=== PATIENT | female | born 1940 | race Caucasian/White ===

== ENCOUNTER 2017-07-29 17:16 | Emergency (ER) | payer MEDICARE, MEDICAID ==
[~2017-07-29] VITALS: Ht 162.6 cm; Wt 77.1 kg
[2017-07-29 17:20] VITALS: BP 110/48
--- NOTE | 2017-07-29 17:25 | Emergency Room Report ---
History of Present Illness General Chief Complaint: Abnormal Labs Source: Medical Record, PMD Present Illness HPI patient BIBEMS from SNF for hypenatremia, renail failure, and leukocytosis Dr Miller concerned for sepsis and renal failure patient doesnt speak at baseline-not providing any additional HPI at this time She is otherwise calm, cooperative Per paperwork is Full code Allergies: Coded Allergies: AMOXICILLIN (Verified Allergy, Unknown, 07/29/17) Patient History Limited by: medical condition, other - dementia Past Medical History: HTN, dementia Past Surgical History: none Pertinent Family History: none Social History: Denies: smoking, alcohol use, drug use Now: No Immunizations: UTD Reviewed Nursing Documentation: PMH: Agreed, PSxH: Agreed Review of Systems All Other Systems: limited - Aphasic at baseline Physical Exam Vital Signs Date Time Temp Pulse Resp B/P (MAP) Pulse Ox O2 Delivery O2 Flow Rate FiO2 07/29/17 17:10 99.3 72 20 109/54 99 Room Air Sp02 EP Interpretation: reviewed, normal General Appearance: normal inspection, well appearing, no apparent distress, alert, GCS 15, non-toxic Head: normocephalic, atraumatic Eyes: bilateral eye PERRL, bilateral eye EOMI ENT: normal ENT inspection, hearing grossly normal, normal voice Neck: normal inspection, full range of motion, supple, no bony tend Respiratory: normal inspection, lungs clear, normal breath sounds, no respiratory distress, no retraction, no wheezing Cardiovascular #1: regular rate, rhythm, no edema Gastrointestinal: normal inspection, normal bowel sounds, non tender, soft, no guarding, no hernia Genitourinary: no CVA tenderness Musculoskeletal: normal inspection, back normal, normal range of motion, Brian' s Sign negative Neurologic: normal inspection, alert, responsive, editor managing newspaper III-XII nml as tested, motor strength/tone normal, speech normal Psychiatric: normal inspection, judgement/insight normal, mood/affect normal Skin: normal inspection, normal color, no rash Lymphatic: normal inspection Medical Decision Making Medicare Attestation I Chela Cid MD hereby attest that the medical record entry for date of service, 07/29/17 accurately reflects signatures/notations that I made in my capacity as MD when I treated/diagnosed the above listed Medicare beneficiary. I attest that this information is true, accurate and complete to the best of my knowledge. I understand that any falsification, omission, or concealment of material fact may subject me to administrative, civil, or criminal liability. This patient warrants hospital admission for extreme of age and has a condition that cannot be treated as outpatient. Diagnostic Impression: Primary Impression: Sepsis Qualified Codes: A41.9 - Sepsis, unspecified organism Additional Impressions: Hypernatremia ANGEL (acute kidney injury) ER Course VSS. Afebrile Labs: Leuks 18k. Hypernatremic. Mild elevation of Lactate 2.2. Mild serumCr elevation CXR: No obvious PNA UA: Pending Low suspicion for meningitis No cellulitis Abd soft, NT/ND HyperNa 155 Likely pre-renal dehydration hyperNa NS started in ED Endorsed to Dr Granda for med/surg at 630pm [place] transfer Stable for transfer EKG Diagnostic Results Rhythm: NSR ST Segments: no acute changes ASA given to the pt in ED: No Rhythm Strip Diag. Results EP Interpretation: yes Rate: 65 Rhythm: NSR, no PVC's, no ectopy Chest X-Ray Diagnostic Results Chest X-Ray Diagnostic Results : Chest X-Ray Ordered: Yes # of Views/Limited/Complete: 1 View Indication: Other - sepsis EP Interpretation: Yes Interpretation: no consolidation, no effusion, no pneumothorax, no acute cardiopulmonary disease Impression: No acute disease Electronically Signed by: Dr Chela Cid MD Last Vital Signs Date Time Temp Pulse Resp B/P (MAP) Pulse Ox O2 Delivery O2 Flow Rate FiO2 07/29/17 17:10 99.3 72 20 109/54 99 Room Air Status: improved Disposition: ADMITTED INPATIENT Condition: Serious CHELA CID M.D. Jul 29, 2017 17:25
[2017-07-29] MEDS ORDERED: ASPIR 8181 MG ORAL (18:24)
[2017-07-29] MEDS ORDERED: AMLODIPINE BESYL5 MG ORAL (18:24)
[2017-07-29] MEDS ORDERED: ATORVASTATIN CA20 MG ORAL (18:24)
[2017-07-29] MEDS ORDERED: SINEMET 25/1001 EA ORAL (18:26)
[2017-07-29] MEDS ORDERED: DOCUSATE SODIU100 MG ORAL (18:26)
[2017-07-29] MEDS ORDERED: DONEPEZIL HCL10 M2 ORAL (18:29)
[2017-07-29] MEDS ORDERED: METOPROLOL TART25 MG ORAL (18:29)
[2017-07-29] MEDS ORDERED: LISINOPRIL40 MG ORAL (18:29)
[2017-07-29] MEDS ORDERED: ACETAMINOPHEN325 M1 ORAL (18:31)
[2017-07-29] MEDS ORDERED: ROPINIROLE HC0.25 MG PO (18:31)
[2017-07-29] MEDS ORDERED: MULTIVITAMINS1 EAC8 ORAL (18:31)
[2017-07-29 18:43] LABS: MEAN CORPUSCULAR HEMOGLOBIN 29.3 PG (27.0-31.0); MEAN CORPUSCULAR HGB CONC 33.1 G/DL (32.0-36.0); MEAN CORPUSCULAR VOLUME 89 FL (80-99); MEAN PLATELET VOLUME 7.4 FL (6.5-10.1); PLATELET COUNT 240 K/UL (150-450); RED BLOOD COUNT 4.43 M/UL (4.20-5.40); RED CELL DISTRIBUTION WIDTH 14.2 % (11.6-14.8); WHITE BLOOD COUNT 18.2 K/UL (4.8-10.8)
[2017-07-29 19:00] LABS: TROPONIN I < 0.30 ng/mL (<=0.30)
[2017-07-29 19:01] LABS: ALANINE AMINOTRANSFERASE 5 U/L (3-33); ALBUMIN/GLOBULIN RATIO 1.3 (1.0-2.7); ANION GAP 13 (5-15); ASPARTATE AMINO TRANSFERASE 18 U/L (5-40); CALCIUM 9.8 mg/dL (8.6-10.2); CARBON DIOXIDE 28 mEQ/L (20-30); CHLORIDE 114 mEQ/L (98-107); CREATININE 1.8 mg/dL (0.5-0.9); HEMOLYSIS 1; POTASSIUM 4.5 mEQ/L (3.4-4.9); REFLEX LACTIC ACID YES OR NO YES; SODIUM 155 mEQ/L (135-145); TOTAL PROTEIN 6.9 g/dL (6.6-8.7)
[2017-07-29 19:12] LABS: CKMB 2.6 ng/mL (< 3.8)
[2017-07-29 19:23] LABS: KETONES,URINE NEGATIVE (NEGATIVE); LEUKOCYTE ESTERASE ,URINE 3+ (NEGATIVE); NITRITE,URINE NEGATIVE (NEGATIVE); PH,URINE 9 (4.5-8.0); PROTEIN,URINE 2+ (NEGATIVE); UROBILINOGEN,URINE NORMAL MG/DL (0.0-1.0)
[2017-07-29 19:24] LABS: APPEARANCE,URINE SLIGHTLY CLOUDY
[2017-07-29 19:31] LABS: AMORPHOUS SEDIMENT,UR FEW /LPF; BACTERIA,URINE MANY /HPF; SQUAMOUS EPITHELIAL CELL,UR FEW /LPF (NONE/OCC)
[2017-07-29 19:40] VITALS: BP 110/58
[2017-07-29 19:45] LABS: BAND NEUTROPHILS % (MANUAL) 1 % (0-8); BASOPHILS % (MANUAL) 0 % (0-2); EOSINOPHILS % (MANUAL) 1 % (0-3); LYMPHOCYTES % (MANUAL) 10 % (20-45); NEUTROPHILS % (MANUAL) 85 % (45-75); PLATELET ESTIMATE ADEQUATE; PLATELET MORPHOLOGY NORMAL; TOTAL CELLS COUNTED 100
[2017-07-29 20:50] VITALS: BP 100/39
[2017-07-29 21:12] VITALS: BP 100/39
--- NOTE | 2017-07-30 09:47 | Diagnostic Imaging Report ---
Indication: SOB Technique: One view of the chest Comparison: none Findings: Lungs and pleural spaces are clear. Heart size is normal. Aorta is calcified. Patient's chin through the upper mediastinum and right lung apex. Impression: No acute process
== END 2017-07-29 21:23 | disposition short-term general hospital (02) ==
LOC: EDBD 17:16 → EMR 18:56 → EDBEDREQ 19:18 → EDBEDREQSVC 19:18 → EMR 21:23
DX: A41.9 Sepsis, unspecified organism (principal); E87.0 Hyperosmolality and hypernatremia; N17.9 Acute kidney failure, unspecified; Z88.0 Allergy status to penicillin; F03.90 Unspecified dementia, unspecified severity, without behavioral disturbance, psychotic disturbance, mood disturbance, and anxiety; I10 Essential (primary) hypertension; R47.01 Aphasia
CPT/HCPCS: 36415; 51701; 71010; 80053; 81003; 82550; 82553; 83605; 84484; 85007; 85025; 87040; 87081; 87086; 93005; 96361; 96365; 99285; J1956